=== PATIENT | female | born 1965 | race Caucasian/White ===

== ENCOUNTER → 2021-06-17 11:20 | Outpatient (BNVA) | payer OTHER, SELFPAY | PROVIDERS: Visit Provider Internal Medicine Cardiovascular Disease | DX: I21.09 ST elevation (STEMI) myocardial infarction involving other coronary artery of anterior wall (principal); I25.5 Ischemic cardiomyopathy; R42 Dizziness and giddiness; Z79.82 Long term (current) use of aspirin; Z79.899 Other long term (current) drug therapy | CPT/HCPCS: 93005; 99212 ==

== ENCOUNTER → 2021-07-05 07:33 | Outpatient (REF) | payer OTHER, SELFPAY ==
--- NOTE | 2021-07-05 07:37 | CA_ITS ---
Transthoracic Echocardiogram Patient (Last, First, Middle): Brandy Irby, Gender: Female Date of : 1965 Age: 56 Procedure Date: 07/05/2021 Procedure Type: Transthoracic Echocardiogram Location: OP Height: 160.02 cm Weight: 58.97 kg BSA: 1.61 m2 Heart Rate: bpm BP: 126 / 88 mmHg Line And Frame Poler: MONISHA Referring MD: Alfred Oneal MD Presser All Around: Bud Ortez MD Symptoms: I25.5 - Ischemic cardiomyopathy Study Quality: Fair Conclusions: - 1. Normal LV systolic function with impaired relaxation filling pattern 2. Moderate mitral annular calcification with mild mitral regurgitation 3. Normal RV systolic pressure 4. No gross pericardial effusion Findings Left Ventricle Normal left ventricular size, thickness, and systolic function. The visually estimated ejection fraction is between 60-65%. Spectral Doppler is indicative of an impaired relaxation filling pattern. E/E prime ratio is between 8 and 15 consistent with indeterminate filling pressures. Right Ventricle Normal right ventricular cavity size and systolic function. Atria The left atrium is normal in size. There is no evidence of interatrial shunt. The right atrium is normal in size. Aortic Valve The aortic valve structure and function is likely normal. There is no aortic valve stenosis. There is no aortic valve regurgitation. Mitral Valve There is mild anterior and moderate posterior mitral leaflet thickening. There is moderate mitral annular calcification. There is mild mitral valve regurgitation. There is no mitral valve stenosis. Pulmonic Valve The pulmonic valve was not well visualized. Tricuspid Valve Likely normal tricuspid valve structure and function. There is mild tricuspid valve regurgitation. The right ventricular systolic pressure is normal. The right ventricular systolic pressure is 20 mmHg. Normal right atrial pressure. There is no evidence of pulmonary hypertension. Great Vessels All visible segments of the aorta are normal in size. The pulmonary artery was not well visualized. Venous The inferior vena cava is normal in size and collapses greater than 50% with inspiration. Pericardium/Pleural There is no evidence of pericardial effusion. Prior Study Comparison No prior study available for comparison. Measurements 2D Linear Measurements IVSd: 1.10 0.6-0.9/0.6-1.0 cm LVIDd: 3.95 3.9-5.3/4.2-5.9 cm LVIDd Index: 2.45 2.4-3.2/2.2-3.1 cm/m2 LVIDs: 2.76 2.0-3.6 cm LVPWd: 0.95 0.7-1.1 cm Ao Root: 2.70 2.1-3.5 cm LA Diam: 3.70 2.7-3.8/3.0-4.0 cm LAIDs Index: 2.30 1.5-2.3 cm/m2 LV Mass: 160.77 67-162/88-224 g LV Mass Index: 99.86 43-95/49-115 g/m2 LVOT Diam: 2.10 3.0+(-)1.3 cm 2D Systolic Function EF 4C: 60.20 >55% EF 2C: 64.80 >55% EF BiP: 60.10 >55% Mitral Valve MV Pk E: 0.86 MV PK A: 1.18 MV Decel Time: 235.00 E/A: 0.70 E'Lateral: 7.29 E'Medial: 5.66 E/E' Med: 15.20 E/E' Lat: 11.80 PHT: 69.00 MVA PHT: 3.19 Decel Bond: 3.65 Aortic Valve AoV Pk [place]: 1.29 AoV Mn [place]: 0.85 AoV VTI: 0.24 AoV Pk Grad: 7.00 Aov Mn Grad: 3.00 ROE Cont.VTI: 2.89 LVOT LVOT Pk [place]: 0.98 LVOT Mn [place]: 0.73 LVOT VTI: 0.20 LVOT Pk Grad: 4.00 LVOT Mn Grad: 2.00 LVOT Diam: 2.10 LVOT Area: 3.46 Diastolic Function MV Pk E: 0.86 MV Pk A: 1.18 E/A: 0.70 E'Medial: 5.66 E/E' Med: 15.20 E' Laterial: 7.29 E/E' Lat: 11.80 Right Ventricle TAPSE (mm): 18.20 TVS' [place]: 10.30 Tricuspid Valve TR Pk [place]: 2.05 TR Pk Grad: 17.00 RA Press: 3.00 RVSP: 20.00 Great Vessels Aorta Ao Root-2D: 2.70 2.0-3.7 cm Ao Asc: 2.80 2.1-3.4 cm Ao Arch: 3.10 Updated in Other Vendor System with Status of Final Bud Ortez MD electronically signed on 07/06/2021 12:30:51 PM with status of Final
== END ==
LOC: HO.CARD 07:33
PROVIDERS: PCP Registered Nurse; Visit Provider Internal Medicine Cardiovascular Disease
DX: I25.5 Ischemic cardiomyopathy (principal)
CPT/HCPCS: 93306